=== PATIENT | male | born 1975 | race American Indian/Alaskan Native ===

== ENCOUNTER 2019-11-04 20:31 | Emergency (ER) | payer OTHER ==
--- OUTSIDE RECORDS SUMMARY | ~2019-11-04 | XMS | Clinical Summary ---
Demographics + + + | Address | [address] | | | [place] [address] | + + + | Home Phone | | + + + | Preferred Language | Unknown | + + + | Marital Status | Unknown | + + + | Yazdanism Affiliation | [id number] | + + + | Race | White | + + + | Ethnic Group | Not or | + + + Author + + + | Author | [facility] | | | and [place] | + + + | Organization | [facility] | | | and [place] | + + + | Address | Unknown | + + + | Phone | Unavailable | + + + Support + + +---------+ + | Name | Relationship | Address | Phone | + + +---------+ + | Lin Velasquez | ECON | Unknown | | + + +---------+ + Care Team Providers + +------+ + | Care Thread Winder Name | Role | Phone | + +------+ + | Tiffany Sage | PCP | | + +------+ + Allergies No Known Allergies Medications + + + +---------+------+------+-------+ | Medication | Sig | Dispensed | Refills | Star | End | Statu | | | | | | t | Date | s | | | | | | Date | | | + + + +---------+------+------+-------+ | methylPREDNISolone | Follow package | 21 | 0 | 04/1 | | Activ | | (MEDROL DOSEPAK) 4 | directions. | tablet | | 5/20 | | e | | mg tablet | | | | 20 | | | + + + +---------+------+------+-------+ Active Problems + + + | Problem | Noted Date | + + + | Lumbar strain | 06/10/2019 | + + + | Contusion of right knee | 08/11/2015 | + + + | Sprain of right knee | 08/11/2015 | + + + Family History + + +--------+ + | Medical History | Relation | Name | Comments | + + +--------+ + | No known problems | Father | Jose F | | + + +--------+ + | No known problems | Maternal | | | | | Grandfath | | | | | er | | | + + +--------+ + | No known problems | Maternal | | | | | Grandmoth | | | | | er | | | + + +--------+ + | No known problems | Mother | | | + + +--------+ + | No known problems | Paternal | | | | | Grandfath | | | | | er | | | + + +--------+ + | No known problems | Paternal | | | | | Grandmoth | | | | | er | | | + + +--------+ + | No known problems | Son | | | + + +--------+ + + +--------+--------+ + | Relation | Name | Status | Comments | + +--------+--------+ + | Father | Jose F | Alive | | + +--------+--------+ + | Maternal Grandfather | | | | + +--------+--------+ + | Maternal Grandmother | | | | + +--------+--------+ + | Mother | | | | + +--------+--------+ + | Paternal Grandfather | | | | + +--------+--------+ + | Paternal Grandmother | | | | + +--------+--------+ + | Son | | | | + +--------+--------+ + Social History + +-------+ +--------+------+ | Tobacco Use | Types | Packs/Day | Years | Date | | | | | Used | | + +-------+ +--------+------+ | Current Every Day | | | | | | Smoker | | | | | + +-------+ +--------+------+ + +---+---+---+ | Smokeless Tobacco: | | | | | Current User | | | | + +---+---+---+ + + +---------+ + | Alcohol Use | Drinks/Week | oz/Week | Comments | + + +---------+ + | Never | | | | + + +---------+ + + + + + | Alcohol Habits | Answer | Date Recorded | + + + + | How often do you have a drink containing | Never | 08/08/2018 | | alcohol? | | | + + + + | How many drinks containing alcohol do you | Not asked | | | have on a typical day when you are | | | | drinking? | | | + + + + | How often do you have six or more drinks on | Not asked | | | one occasion? | | | + + + + + + + | Sex Assigned at | Date Recorded | | | | + + + | Not on file | | + + + Last Filed Vital Signs + + + + + | Vital Sign | Reading | Time Taken | Comments | + + + + + | Blood Pressure | 114/75 | 06/10/2019 1:04 PM | | | | | PDT | | + + + + + | Pulse | 66 | 06/10/2019 1:04 PM | | | | | PDT | | + + + + + | Temperature | 36.3 C (97.3 F) | 06/10/2019 1:04 PM | | | | | PDT | | + + + + + | Respiratory Rate | 16 | 06/10/2019 1:04 PM | | | | | PDT | | + + + + + | Oxygen Saturation | 97% | 08/08/2018 5:39 PM | | | | | PDT | | + + + + + | Inhaled Oxygen | - | - | | | Concentration | | | | + + + + + | Weight | 78 kg (172 lb) | 06/10/2019 1:04 PM | | | | | PDT | | + + + + + | Height | 177.8 cm (5' 10") | 06/10/2019 1:04 PM | | | | | PDT | | + + + + + | Body Mass Index | 24.68 | 06/10/2019 1:04 PM | | | | | PDT | | + + + + + Plan of Treatment + + + + + | Health Maintenance | Due Date | Last | Comments | | | | Done | | + + + + + | Hepatitis C | | | | | Screening | 4 | | | + + + + + | Vaccine: | | | | | Pneumococcal 19-64 | 0 | | | | (1 of 1 - PPSV23) | | | | + + + + + | Vaccine: Influenza | | 12/05/19 | | | (#1) | 0 | 18, | | | | | 12/01/19 | | | | | 16 | | + + + + + | Vaccine: | | 08/08/19 | | | Dtap/Tdap/Td (3 - | 9 | 19, | | | Td) | | 08/13/19 | | | | | 10 | | + + + + + Results Not on filefrom Last 3 Months Insurance + +--------+ +--------+-------+---------+--------+ | Payer | Benefi | Subscriber | Effect | Phone | Address | Type | | | t Plan | ID | lg | | | | | | / | | Dates | | | | | | Group | | | | | | + +--------+ +--------+-------+---------+--------+ | CORVEL WC | CORVEL | [id number] | 06/03/19 | | | Indemn | | | WC | [id number] | 20-Pre | | | ity | | | | | sent | | | | + +--------+ +--------+-------+---------+--------+ | BCBS | BCBS | [id number] | | | | PPO | | | OOS | 3 | 019-Pr | | | | | | PPO | | esent | | | | + +--------+ +--------+-------+---------+--------+ + +--------+ +--------+ + + | Guarantor Name | Accoun | Relation to | Date | Phone | Billing Address | | | t Type | Patient | of | | | | | | | | | | + +--------+ +--------+ + + | Domo Joseph | Person | Self | [birth year] | [address] | | | al/Fam | | 1974 | | [place] [address] | | | edwar | | | 3 (Home) | | + +--------+ +--------+ + + | Domo Joseph | Worker | Self | [birth year] | [address] | | | s Comp | | 1974 | | [place] [address] | | | | | | 3 (Home) | | + +--------+ +--------+ + + | Domo Joseph | Person | Self | [birth year] | [address] | | | al/Fam | | 1974 | [id number] | [place] [address] | | | edwar | | | 3 (Home) | | + +--------+ +--------+ + + Advance Directives + + + + + | Type | Date Recorded | Patient | Explanation | | | | A/C Tech | | + + + + + | Power of | | | | | Ladle Liner | | | | + + + + + | Advance | | | | | Directive | | | | + + + + +
--- OUTSIDE RECORDS SUMMARY | ~2019-11-04 | XMS | Encounter Summary ---
Demographics + + + | Address | [address] | | | [place] [address] | + + + | Home Phone | | + + + | Preferred Language | Unknown | + + + | Marital Status | Unknown | + + + | Islam Affiliation | 1009 | + + + | Race | White | + + + | Ethnic Group | Not or | + + + Author + + + | Author | [facility] | | | and [place] | + + + | Organization | [facility] | | | and [...] Team Providers + +------+ + | Care Adult Basic Studies Teacher Name | Role | Phone | + +------+ + | Tiffany Sage | PCP | | + +------+ + Reason for Visit + + + | Reason | Comments | + + + | New Patient | | + + + | Back Pain | | + + + Evaluate & Treat (Routine) +--------+--------+ + + + + | Status | Reason | Specialty | Diagnoses / | Referred By | Referred To | | | | | Procedures | Contact | Contact | +--------+--------+ + + + + | Closed | | Physical | Diagnoses | Sage, | Juvenal, | | | | Medicine and | Other | [facility] [place] | Piotr Day MD | | | | Rehabilitatio | intervertebr | [address] | [address] | | | | n | al disc | [address] | [place] | | | | | displacement | [place], | [place], [place] | | | | | , lumbar | [place] | [address] Phone: | | | | | pdbrze | [address] | [phone] | | | | | | Phone: | Fax: | | | | | | [phone] | [phone] | | | | | | Fax: | | | | | | | [phone] | | +--------+--------+ + + + + Encounter Details +--------+---------+ + + + | Date | Type | Department | Care Team | Description | +--------+---------+ + + + | 06/09/ | Office | [facility] | Kaila Warner | Strain of lumbar | | 2020 | Visit | PHYSIATRY [address] | [address]ISBET [address] | region, subsequent | | | | [address] | [address] | encounter | | | | [place], [place] | [address] [place], [place] | | | | | [address] | [address] | | | | | [phone] | | | +--------+---------+ + + + Social History + +-------+ +--------+------+ | [...] on file | | + + + documented as of this encounter Last Filed Vital Signs + + + [...] + + + | Oxygen Saturation | - | - | | + + + + + [...] | | + + + + + documented in this encounter Patient Instructions Patient Instructions Kaila Warner PA-C - 06/10/2019 1:00 PM PDT1. A prescriptio n for 1 week of steroid pills was sent to your pharmacy. This will hopefully reduce some in flammation and reduce some pain. 2. Continue with core conditioning at home exercises. 3. If the Medrol Dosepak prescription does not improve your pain enough please call back a nd I will facilitate having lumbar facet injections done to see if this will reduce your roshan n. I have included information below about facet injections in case we need to go forward w ith this. Facet Joint Injection Back or neck pain may be caused by a problem with your facet joints. If so, a facet joint i njection may help. With this treatment, medicine is injected into certain facet joints. The injection can help your doctor find problem joints. It may also relieve your pain. What is a facet joint? Bones called vertebrae make up your spine. Each vertebra has facets (flat surfaces) that to uch where the vertebrae fit together. These form a structure called a facet joint on each si de of the vertebrae. What is a facet joint injection? One or more facet joints in your back or neck can become inflamed (swollen and irritated). This may cause pain. During a facet joint injection, medicine is injected into the inflamed joints. This treatment may help reduce inflammation and relieve pain. Pain reliefmay last for weeks to months or longer. If the pain returns, you may need a repeat injection. Getting ready To get ready for your treatment, do the following: At least a week before treatment, tell your healthcare provider what medicines you take. This includes aspirin. Ask whether you should stop taking any of them before treatment. Tell your provider if you are or allergic to any medicines. Follow any directions you are given for not eating or drinking before the treatment. If asked, bring X-rays, MRIs, or other tests with you on the day of your treatment. Date Last Reviewed: 05/26/201719990973-7949 [employer]. [address] [place] [address]. All righ ts reserved. This information is not intended as a substitute for professional medical care. Always follow your healthcare professional's instructions. documented in this encounter Progress Notes Kaila Warner PA-C - 06/10/2019 1:00 PM PDTFormatting of this note might be diffe rent from the original. Emili Warner PA-C [address] [place] [address], [address] [place] [address] PHONE: FAX: PHYSIATRY HISTORY AND PHYSICAL EXAMINATION Organ Worker's Comp. injury date 02/20/2019. CHIEF COMPLAINT: Chief Complaint Patient presents with New Patient Back Pain HISTORY OF PRESENT ILLNESS: The patient is a 44 y.o. male with the complaint of back sympt oms that began on February 20, 2019. The patient describes symptom onset following lifting heavy amount of grout while at work. The symptoms have been gradually worsening. He rates the pain as severe and rated a 3/10. The symptoms are continuous. He describes t he pain as aching, dull, sharp, shooting and throbbing. The patient denies any lower extremity radiation or leg weakness. He does report weakness in his low back. Patient has done 12 physical therapy sessions and has been on modified dut y lifting no more than 10 pounds, no bending or twisting and despite this he has a limited t olerance to activity level. The patient does not report any change in bowel or bladder function recently. His symptoms improve with rest. His symptoms worsen with changing position, standing, sitting, bending and twisting. He has tried PT, NSAIDS and Muscle relaxers. Patient has a history of a work injury to his right knee that required ACL repair and subsequent PT. He found that swimming laps in the pool helped condition his body for return to work. He does admit that he has ongoing right knee pain which may affect his compensation and his ability to lift properly. . PAST MEDICAL HISTORY: Past Medical History: Diagnosis Date Herniation of intervertebral disc between L4 and L5 Lumbar radiculopathy Lumbar spondylosis Lumbar sprain Other intervertebral disc displacement, lumbar region Urinary tract infection, site not specified PAST SURGICAL HISTORY: Past Surgical History: Procedure Laterality Date ANTERIOR CRUCIATE LIGAMENT REPAIR Right 2017 ANTERIOR CRUCIATE LIGAMENT REPAIR Right 1994 CURRENT MEDICATIONS: Current Outpatient Medications Medication Sig Dispense Refill methylPREDNISolone (MEDROL DOSEPAK) 4 mg tablet Follow package directions. 21 tablet 0 No current facility-administered medications for this visit. ALLERGIES: No Known Allergies SOCIAL HISTORY: The patient reports that he has been smoking. He uses smokeless tobacco. He reports that h e does not drink alcohol or use drugs. FAMILY HISTORY: Family History Problem Relation Age of Onset No known problems Father No known problems Son No known problems Mother No known problems Maternal Grandmother No known problems Maternal Grandfather No known problems Paternal Grandmother No known problems Paternal Grandfather REVIEW OF SYSTEMS: GENERALLY: No fever, no night sweats, no anemia, no fatigue, no recent profound weight ch anges. EYES: No eye problems, no impaired sight, no use of corrective lenses, no eye injury, no d ouble vision, no transient blindness. EARS, NOSE, AND THROAT: No changes in taste or smell, no hearing difficulty, no ringing in the ears, no ear drainage, no ear injury, no dizziness, no voice changes, no difficulty swa llowing, no significant snoring, no sleep apnea/CPAP, no sinus problems, no major dental wor k. NEUROLOGICALLY: Please see the review of systems discussed above in the history of present illness. In addition, He has back injury. PSYCHIATRIC: No depression, no difficulty sleeping, no anxiety, no bipolar disorder. CARDIOVASCULAR: No heart attacks, no heart murmur, no heart fluttering, no chest pain, no ankle swelling. LUNG DISEASE: No shortness of breath, no cough, no tuberculosis, no bloody cough, no asthm a, no emphysema/COPD. GASTROINTESTINAL: No bowel disease, no nausea or vomiting, no rectal bleeding, no constipa tion, no fecal stool incontinence, no liver/gallbladder disease, no abdominal pain, no ulcer s. KIDNEY DISEASE: No urinary frequency, no painful or difficult urination, no urinary incont inence, no bladder problems, no impotence. ENDOCRINE: No diabetes, no thyroid disease, no osteopenia or osteoporosis, no breast drain age. SKIN: No breast lumps, no skin disease or skin changes, no rashes/itches. HEMATOLOGIC/LYMPHATIC: No enlarged lymph nodes, no easy or unusual bleeding, no personal h istory of cancer. RHEUMATOLOGIC: No joint pain/arthritis, no rheumatoid arthritis. PHYSICAL EXAMINATION: Blood pressure 114/75, pulse 66, temperature 36.3 C (97.3 F), resp. rate 16, height 1.7 78 m (5' 10"), weight 78 kg (172 lb). Body mass index is 24.68 kg/m. GENERAL: Domo Joseph is in no acute distress with unlabored respirations. He does n ot appear uncomfortable throughout the exam today. HEENT: Head: Normocephalic/atraumatic with no areas of recent trauma. Eyes: Normal sclerae without icterus. Ears: No drainage or tenderness. Nasopharynx: Clear without drainage. Oropharynx: Clear without erythema. NECK (ANTERIOR): Supple and without palpable masses. CHEST: Unlabored respirations HEART: No lower extremity edema noted ABDOMEN: Soft, non-tender, non-distended, and without palpable masses. The patient is not obese. NEUROLOGICAL: The patient is awake, alert, and oriented to time, place, person. He follows simple and complex commands. His speech is fluent. He comprehends speech well. He has no apparent deficits with short or long-term memory. Cranial nerves 2-12 appear grossly intact. EXTREMITIES: No cyanosis, clubbing, or edema. Distal pulses are palpable. PHYSICAL EXAM: MENTAL STATUS: He is awake, alert, and oriented. He follows simple and complex commands. His speech is fluent, he comprehends speech well, and he repeats well. He has no apparent deficits with short or rn long term care memory. CRANIAL NERVES: II: Acuity is intact. Coronel are full to confrontation. III, IV, : The pupils are reactive. Extraocular movements are intact. No ptosis is note d. V: Facial sensation is intact and symmetric. VII: Facial movements are symmetric. VIII: Hearing is intact bilaterally. IX, X: The uvula and palate move appropriately. XI: Shrug is equal bilaterally. XII: Tongue protrusion is midline. MOTOR EXAM: (5 IS NORMAL) * Indicates pain limited MUSCLE/ MOVEMENT: RIGHT LEFT Hip Flexion 5 5 Hip Extension 5 5 Knee Flexion 5 5 Knee Extension 5 5 Dorsiflexion 5 5 Extensor Hallicus Longus 5 5 Plantarflexion 5 5 SENSORY EXAM: Sensory exam shows no diminished sensation to light touch or pain throughout the upper and lower extremities. REFLEXES: (2 OR 2+ IS NORMAL) REFLEX: RIGHT LEFT PATELLAR 2 2 ACHILLES 2 2 SIMEON'S ABSENT ABSENT PLANTAR DOWNGOING DOWNGOING GAIT: Gait is steady. Patient is able to demonstrate tiptoe and heel walk. Lumbar flexion is de monstrated with significant guarding and slow movements due to anticipated low back pain. L umbar extension is demonstrated with some reports of pressure in the low back. The patient reports that frequent forward flexion aggravates his pain. Patient has some positive facet loading at L4-5 and L5-S1 bilateral. PERIPHERAL NERVE/MISC: Straight leg raise is negative bilaterally. Mendez's test of the hips is negative bilaterally. TEST AND RADIOGRAPHIC REVIEW: His imaging was reviewed in detail today during the visit. The MRI from 05/18/2019 shows L2 -3 disc bulge. L4-5 disc bulge with facet hypertrophy and mild facet subluxation causing mo derate central stenosis. Emerging bilateral L5 nerve roots mildly squeeze between the facet joints and disc left greater than right. L5-S1 disc bulge with mild effacement of the thec al sac. Mild facet hypertrophy.. Lumbar x-rays from 04/07/2019 shows no major instability. Patient has disc degenerative dis ease at L4-5 and L5-S1 with spondylosis. ASSESSMENT: NEUROSURGICAL DIAGNOSES: Encounter Diagnosis Name Primary? Strain of lumbar region, subsequent encounter GENERAL DIAGNOSES: Past Medical History: Diagnosis Date Herniation of intervertebral disc between L4 and L5 Lumbar radiculopathy Lumbar spondylosis Lumbar sprain Other intervertebral disc displacement, lumbar region Urinary tract infection, site not specified PLAN: Domo Joseph presented today, and it was a pleasure seeing this patient and assessing his problems. 1) Today we discussed the patient's differential diagnosis with the likely primary issue be ing lumbar strain with lumbar spondylosis. Patient also has multilevel disc bulge which may be causing pain with anterior loading. Patient's description of symptoms, physical exam, a nd imaging suggest this diagnosis at this time. 2) I counseled patient on treatment options which included conservative self management usi ng OTC NSAIDs/Ice and heat packs, physical therapy, prescription medications, epidural stero id injection, neuromodulation therapies, as well as possible surgical intervention. 3) Imaging: As descibed above in radiology review. 4) The patient has had significant conservative care including medications (NSAIDS and narc otics), PT (multiple sessions over the years) and rn patient care. Unfortunately Domo Joseph continues to have significant discomfort. It appears to me that the pain is prima rily coming from multilevel lumbar disc bulge with some lumbar spondylosis at L4-5 and L5-S1 . I did feel that Domo Joseph would be a good candidate for interventional procedur es and I offered a bilateral L4-5 and L5-S1 facet joint injections to be done. Patient will first try Medrol Dosepak to see if his pain reduces before injection options. I did feel that Domo Joseph would be a good candidate for medication: Medrol Dose suraj was prescribed to the patient for pain reduction. He was encouraged to try some return to work conditioning. He suggested returning to swimming which I think it would be appropri ate if it did not cause pain. 5) Patient will follow up with me 3 weeks post injection/as needed to discuss any imaging a nd/or progress with today's treatment plan. 6) If current treatment plan is insufficient for symptom relief we could try bilateral L4-5 and L5-S1 facet joint injection as the next therapy option. I spent 30 minutes in visit with Domo Joseph today with the majority of time spent c ounselling the patient on his diagnosis, options for his care, and coordinating his care. 06/10/19 ELECTRONICALLY SIGNED BY: Emili Warner PA-C, 06/10/2019 3:51 PM documented in this encounter Plan of Treatment Not on filedocumented as of this encounter Visit Diagnoses + + | Diagnosis | + + | Strain of lumbar region, subsequent encounter | + + documented in this encounter
--- OUTSIDE RECORDS SUMMARY | ~2019-11-04 | XMS | Encounter Summary ---
Demographics + + + | Address | [address] | | | [place] [address] | + + + | Home Phone | | + + + | Preferred Language | Unknown | + + + | Marital Status | Unknown | + + + | Episcopal Affiliation | 1009 | + + + | Race | White | + + + | Ethnic Group | Not or | + + + Author + + + | Author | [facility] | | | and [place] | + + + | Organization | [facility] | | | [...] Team Providers + +------+ + | Care Piercing Artist Name | Role | Phone | + +------+ + | No, Physician | PCP | Unavailable | + +------+ + Encounter Details +--------+ + + + + | Date | Type | Department | Care Team | Description | +--------+ + + + + | 09/05/ | Imaging | [facility] | Heena Rodriguez | S/P ACL | | 2019 | Exam | [address] | MD [address] | reconstruction; | | | | [address] [place] | [address] [place] | Place of occurrence, | | | | [place] [address] | [place] [address] | industrial places | | | | [phone] | [phone] | and premises | | | | | | | +--------+ + + + + Social History + +-------+ +--------+------+ | Tobacco Use | Types | Packs/Day | Years | Date | | | | | Used | | + +-------+ +--------+------+ | Never Smoker | | | | | + [...] + + documented as of this encounter Plan of Treatment Not on filedocumented as of this encounter Procedures + +--------+ + + + | Procedure Name | Priori | Date/Time | Associated Diagnosis | Comments | | | ty | | | | + +--------+ + + + | XR KNEE RIGHT 1 - 2 | Routin | 09/05/2018 | S/P ACL | Results for this | | VW | e | 2:54 PM | reconstruction | procedure are in the | | | | PDT | Place of occurrence, | results section. | | | | | industrial places | | | | | | and premises | | + +--------+ + + + documented in this encounter Results XR Knee Right 1 - 2 Vw (09/05/2018 2:54 PM PDT) + + | Specimen | + + | | + + + + + | Narrative | Performed At | + + + | XR KNEE RIGHT 1 - 2 VW 09/05/2018 2:54 PM HISTORY: pain. | [facility] | | COMPARISON: None. FINDINGS: No evidence of prior ACL repair. No | | | significant joint effusion. Mild tricompartment degenerative changes | | | of the right knee. No acute osseous findings. IMPRESSION - No | | | acute osseous findings. No evidence of prior ACL repair. No | | | significant joint effusion. Dictated and Signed by: Miko | | | MD Mya Electronically signed: 09/05/2018 3:11 PM | | + + + + + | Procedure Note | + + | Arjun, Rad Results In - 09/05/2018 3:14 PM PDT XR KNEE RIGHT 1 - 2 VW 09/05/2018 2:54 | | PMHISTORY: pain.COMPARISON: None.FINDINGS:No evidence of prior ACL repair. No | | significant joint effusion. Mildtricompartment degenerative changes of the right knee. | | No acute osseousfindings.IMPRESSION -No acute osseous findings.No evidence of prior ACL | | repair. No significant joint effusion.Dictated and Signed by: Miko Roque MD | | Electronically signed: 09/05/2018 3:11 PM | |FINDINGS: | |No evidence of prior ACL repair. No significant joint effusion. Mild | |tricompartment degenerative changes of the right knee. No acute osseous | |findings. | | | |IMPRESSION - | |No acute osseous findings. | | | |No evidence of prior ACL repair. No significant joint effusion. | | | |Dictated and Signed by: Miko Roque MD | | Electronically signed: 09/05/2018 3:11 PM | + + + +---------+ + + | Performing | Address | City/State/Zipcode | Phone Number | | Organization | | | | + +---------+ + + | [facility] | | | | + +---------+ + + documented in this encounter Visit Diagnoses + + | Diagnosis | + + | S/P ACL reconstruction Other postprocedural status | + + | Place of occurrence, industrial places and premises | + + documented in this encounter"
--- OUTSIDE RECORDS SUMMARY | ~2019-11-04 | XMS | Encounter Summary ---
Demographics + + + | Address | [address] | | | [place] [address] | + + + | Home Phone | | + + + | Preferred Language | Unknown | + + + | Marital Status | Unknown | + + + | Voodoo Affiliation | 1009 | + + + | Race | White | + + + | Ethnic Group | Not or | + + + Author + + + | Author | [facility] | | | and [place] | + + + | Organization | [facility] | | | and [place] | + + + | Address | Unknown | + + + | Phone | Unavailable | + + + Support + + +---------+ + | Name | Relationship | Address | Phone | + + +---------+ + | Lin eVlasquez | ECON | Unknown | | + + +---------+ + Care Team Providers + +------+ + | Care Billet Assembler Name | Role | Phone | + +------+ + | Tiffany Sage | PCP | | + +------+ + Encounter Details +--------+ + + + + | Date | Type | Department | Care Team | Description | +--------+ + + + + | 06/03/ | Imaging | [facility] | Provider, | | | 2019 | Exam | [facility] | [address] | | | | | IMAGING [address] | [address] | | | | | [address] | [place] [address] | | | | | [place] [address] | | | | | | [phone] | | | +--------+ + + + [...] + +--------+ + + + | XR LUMBAR SPINE 2 OR | Routin | 04/07/2019 | | Results for this | | 3 VW | e | 12:00 AM | | procedure are in the | | | | PST | | results section. | + +--------+ + + + documented in this encounter Results XR Lumbar Spine 2 or 3 Vw (04/07/2019 12:00 AM PST) + + | Specimen | + + | | + + + + + | Narrative | Performed At | + + + | External films for comparison only | [facility] | | | | | No results will be in the chart. | | + + + + +---------+ + + | Performing | Address | City/State/Zipcode | Phone Number | | Organization | | | | + +---------+ + + | [facility] | | | | + +---------+ + + documented in this encounter Visit Diagnoses Not on filedocumented in this encounter"
--- OUTSIDE RECORDS SUMMARY | ~2019-11-04 | XMS | Encounter Summary ---
Demographics + + + | Address | [address] | | | [place] [address] | + + + | Home Phone | | + + + | Preferred Language | Unknown | + + + | Marital Status | Unknown | + + + | Baptist Affiliation | 1009 | + + + | Race | White | + + + | Ethnic Group | Not or | + + + Author + + + | Author | [facility] | | | and [place] | + + + | Organization | [facility] | | [...] Team Providers + +------+ + | Care Mail Delivery Supervisor Name | Role | Phone | + [...] | [facility] | [address] | | | | | IMAGING [address] | [address] | | | | | [place] | [place] [address] | | | | | [place] [address] | | | | | | [phone] | | | +--------+ + + + [...] | + +--------+ + + + | MRI LUMBAR SPINE WO | Routin | 05/18/2019 | | Results for this | | CONTRAST | e | 12:00 AM | | procedure are in the | | | | PDT | | results section. | + +--------+ + + + documented in this encounter Results MRI Lumbar Spine wo Contrast (05/18/2019 12:00 AM PDT) + + | Specimen | + [...]
--- OUTSIDE RECORDS SUMMARY | ~2019-11-04 | XMS | Encounter Summary ---
Demographics + + + | Address | [address] | | | [place] [address] | + + + | Home Phone | | + + + | Preferred Language | Unknown | + + + | Marital Status | Unknown | + + + | Yazidism Affiliation | 1009 | + + + | Race | White | + + + | Ethnic Group | Not or | + + + Author + + + | Author | [facility] | | | and [place] | + + + | Organization | [facility] | | | [...] Team Providers + +------+ + | Care Shake Cutter Name | Role | Phone | + +------+ + | Tiffany Sage | PCP | | + +------+ + Encounter Details +--------+ + + + + | Date | Type | Department | Care Team | Description | +--------+ + + + + | 06/07/ | Abstract | [facility] | Freya, | | | 2019 | | PHYSIATRY [address] | [address] | | | | | [address] | [address] | | | | | [place] | [place] [address] | | | | | [address] | | | | | | [phone] | | | +--------+ + + + [...] filedocumented as of this encounter Visit Diagnoses Not on filedocumented in this encounter"
--- OUTSIDE RECORDS SUMMARY | ~2019-11-04 | XMS | Encounter Summary ---
Demographics + + + | Address | [address] | | | [place] [address] | + + + | Home Phone | | + + + | Preferred Language | Unknown | + + + | Marital Status | Unknown | + + + | Baptism Affiliation | 1009 | + + + | Race | White | + + + | Ethnic Group | Not or | + + + Author + + + | Author | [facility] | | | and [place] | + + + | Organization | [facility] | | | and [...] Team Providers + +------+ + | Care Oil Expert Name | Role | Phone | + +------+ + | No, Physician | PCP | Unavailable | + +------+ + Reason for Referral Evaluate & Treat (Routine) +--------+ + + + + + | Status | Reason | Specialty | Diagnoses / | Referred By | Referred To | | | | | Procedures | Contact | Contact | +--------+ + + + + + | Closed | Specialty | Occupational | Diagnoses | [place], | [facility] | | | Services | Medicine | Patellar | MD [facility] | Occupational | | | Required | | bursitis of | [address] | Health Sg | | | | | left knee | [address] [place] | [address] | | | | | | [place] | [address] | | | | | | [address] | [place], | | | | | | Phone: | [place] [address] | | | | | | [phone] | Phone: | | | | | | Fax: | [phone] | | | | | | [phone] | Fax: | | | | | | | [phone] | +--------+ + + + + + Evaluate & Treat (Routine) +--------+ + + + + + | Status | Reason | Specialty | Diagnoses / | Referred By | Referred To | | | | | Procedures | Contact | Contact | +--------+ + + + + + | Closed | Specialty | Physical | Diagnoses | Henriquez, | [facility] [place] | | | Services | Therapy | Patellar | MD [facility] | CLINIC | | | Required | | bursitis of | [address] | PHYSICAL | | | | | left knee | [address] [place] | THERAPY [address] | | | | | | [place] | [address] | | | | | | [address] | [place], | | | | | | Phone: | [place] [address] | | | | | | [phone] | Phone: | | | | | | Fax: | [phone] | | | | | | [phone] | Fax: | | | | | | | [phone] | +--------+ + + + + + Reason for Visit + + + | Reason | Comments | + + + | Knee Pain | right | + + + Encounter Details +--------+ + + + + | Date | Type | Department | Care Team | Description | +--------+ + + + + | 08/08/ | Emergency | [facility] | Raymond Henriquez MD | Patellar bursitis of | | 2019 | | [facility] | [address] | left knee (Primary | | | | CENTER [address] | [place] | Dx) | | | | [place] | [address] | | | | | [address] | | | | | | [phone] | | | +--------+ + + + [...] + + + | Blood Pressure | 137/89 | 08/08/2018 5:39 PM | | | | | PDT | | + + + + + | Pulse | 59 | 08/08/2018 5:39 PM | | | | | PDT | | + + + + + | Temperature | 36.4 C (97.6 F) | 08/08/2018 5:39 PM | | | | | PDT | | + + + + + | Respiratory Rate | 18 | 08/08/2018 5:39 PM | | | | | PDT | | + + + + + | Oxygen Saturation | 97% | 08/08/2018 5:39 PM | | | | | PDT | | + + + + + | Inhaled Oxygen | - | - | | | Concentration | | | | + + + + + | Weight | 78.5 kg (173 lb) | 08/08/2018 5:39 PM | | | | | PDT | | + + + + + | Height | 175.3 cm (5' 9") | 08/08/2018 5:39 PM | | | | | PDT | | + + + + + | Body Mass Index | 25.55 | 08/08/2018 5:39 PM | | | | | PDT | | + + + + + documented in this encounter Discharge Instructions Instructions Raymond Henriquez MD - 08/08/2018You must rest the knee, icing it, keep it elevate d, keep compression on it. Follow-up with physical therapy. Return for worsening symptoms. AttachmentsThe following attachments cannot be sent through Care Everywhere.Bursitis (Leo )Knee Sprain (Latvian)documented in this encounter Medications at Time of Discharge + + + +---------+ + + | Medication | Sig | Dispensed | Refills | Start | End Date | | | | | | Date | | + + + +---------+ + + | meloxicam (MOBIC) | Take 15 mg by mouth | | 0 | | | | 15 mg tablet | Daily. | | | | 0 | + + + +---------+ + + | meloxicam (MOBIC) | Take 1 tablet by | 30 | 0 | 08/09/19 | | | 15 mg tablet | mouth Daily as | tablet | | 19 | 0 | | | needed for Pain. | | | | | + + + +---------+ + + documented as of this encounter ED Notes Raymond Henriquez MD - 08/08/2018 5:36 PM PDTFormatting of this note might be different from t sophie original. [facility] Domo Joseph Emergency Department Encounter Note [address] [place] [id number] PCP:No Physician on file [phone] CHIEF COMPLAINT: Chief Complaint Patient presents with Knee Pain right ED Room: [facility]/[address] Domo Joseph is a 43 y.o. male who presents to the Emergency Department with bilateral kne e pain. Patient has a history of ACL repair of his right knee. He has been having pain of his right knee for the past 2 weeks. He has been favoring his right knee and has not develo ped pain over his patella of his left knee. He denies any numbness or tingling. No history of trauma. He has very active and has a strenuous job. He has been taking ibuprofen with no significant improvement the pain. He had some leftover meloxicam which he says helped si gnificantly. PAST MEDICAL & SURGICAL HISTORY History reviewed. No pertinent past medical history. Past Surgical History: Procedure Laterality Date ANTERIOR CRUCIATE LIGAMENT REPAIR Right 2017 CURRENT MEDICATIONS LAY OUT FORMER Home Medications Medication Sig meloxicam (MOBIC) 15 mg tablet Take 15 mg by mouth Daily. ALLERGIES No Known Allergies FAMILY AND SOCIAL HISTORY History reviewed. No pertinent family history. Social History Socioeconomic History Marital status: Single Spouse name: Not on file Number of children: Not on file Years of education: Not on file Highest education level: Not on file Tobacco Use Smoking status: Never Smoker Smokeless tobacco: Current User Substance and Sexual Activity Alcohol use: Never Frequency: Never Drug use: Never REVIEW OF SYSTEMS As in history of present illness. A 10 system review was otherwise negative. PHYSICAL EXAM VITAL SIGNS: (first vital signs):Temp: 36.4 C (97.6 F) Pulse: 59 Resp: 18 SpO2: 97 % BP : 137/89 Body mass index is 25.55 kg/m. Constitutional: male patient, no acute distress HEENT: Atraumatic, PERRL, Oropharynx benign. Neck: Supple with full range of motion. Respiratory: Good air movement bilaterally. No wheezes, No, rales. Cardiovascular: Normal S1 S2 Abdomen: Soft, nontender, nondistended Extremities: Nontender. No pain of either knee with valgus or varus stress, negative poste rior drawer test and negative Merlin test, pedal pulses 2+ bilaterally, some mild tendernes s over the inferior aspect of his left knee Skin: Warm, Dry, No rashes Neurologic: Alert & oriented. Psychiatric: Normal mood, affect and judgement. EKG 12-lead EKG shows LABS No results found for this or any previous visit. IMAGING STUDIES (X-Rays interpreted by ED Physician) ED COURSE & MEDICAL DECISION MAKING Pertinent Labs & Imaging studies were reviewed along with EMS notes and [facility] record s if applicable. (See chart for details) Medications and Allergy list reviewed. Nurses note and old records were reviewed The patient was seen and examined, Patient is a 43-year-old male who presents with bilateral knee pain. He has no laxity of h is ligaments. Most of the pain is over the inferior aspect of his left patella. Most consi stent with a patella bursitis. He does have a history of right knee surgery. He was placed in [place] bandage and given crutches. Encouraged to follow-up with physical therapy. He want s to follow-up with Dr. Rodriguez of occupational medicine given that he had similar injury 2 y ears ago. Gave him phone number to Dr. Rodriguez. Last Set of Vital Signs: Temp: 36.4 C (97.6 F) Pulse: 59 Resp: 18 SpO2: 97 % BP: 137/89 FINAL IMPRESSION ICD-10-CM ICD-9-CM 1. Patellar bursitis of left knee M70.52 726.60 Follow-up Information [facility]. Specialty: Emergency Medicine Why: If symptoms worsen Contact information: [address] [place] [facility] [address] Call [facility]. Contact information: [address] [facility] [address] Call Heena Rodriguez MD. Specialty: Family Medicine Contact information: [address] [facility] [address] Discharge Medication List as of 08/08/2018 18:50 START taking these medications Details !! meloxicam (MOBIC) 15 mg tablet Take 1 tablet by mouth Daily as needed for Pain.Disp-30 t ablet, R-0, Print !! - Potential duplicate medications found. Please discuss with provider. Raymond Henriquez MD 08/09/18 1320 [address] Beasley R N - 08/08/2018 5:34 PM PDTPt presents to ER with CO right knee pain starting 2 weeks prior, worsening in the last few days. Hx of ACL repair documented in this encounter Plan of Treatment + + +--------+ + + | Name | Type | Priori | Associated Diagnoses | Order Schedule | | | | ty | | | + + +--------+ + + | Deyanira Mcmillan | Outpatient | Routin | Patellar bursitis | Ordered: 08/08/2018 | | Clinic Physical | Referral | e | of left knee | | | Therapy - [facility] | | | | | | Referral | | | | | + + +--------+ + + | * [facility] | Outpatient | Routin | Patellar bursitis | Ordered: 08/08/2018 | | Occupational Health | Referral | e | of left knee | | | [place] - [facility] | | | | | | Referral | | | | | + + +--------+ + + documented as of this encounter Visit Diagnoses + + | Diagnosis | + + | Patellar bursitis of left knee - Primary | + + documented in this encounter
--- OUTSIDE RECORDS SUMMARY | ~2019-11-04 | XMS | Encounter Summary ---
Demographics + + + | Address | [address] | | | [place] [address] | + + + | Home Phone | | + + + | Preferred Language | Unknown | + + + | Marital Status | Unknown | + + + | Sabianist Affiliation | 1009 | + + + | Race | White | + + + | Ethnic Group | Not or | + + + Author + + + | Author | [facility] | | | and [place] | + + + | Organization | [facility] | | | and [...] Team Providers + +------+ + | Care Machine Woodworking Sander Name | Role | Phone | + [...] | Specialty | Physical | Diagnoses | Jennifer, | [facility] | | | Services | Therapy | S/P ACL | Heena | [place] | | | Required | | reconstructi | [facility] | PHYSICAL | | | | | on Place of | [address] | THERAPY - | | | | | occurrence, | [address] | [place] | | | | | industrial | [place], | [address] | | | | | places and | [place] [address] | [place] [address] | | | | | premises | Phone: | [address] | | | | | | [phone] | [place], [place] | | | | | | Fax: | [phone] | | | | | | [phone] | Phone: | | | | | | | [phone] | | | | | | | Fax: | | | | | | | [phone] | +--------+ + + + + + + + | Scheduling Instructions | + + | [facility], [place] | + + Reason for Visit + + + | Reason | Comments | + + + | Knee Injury | | + + + Encounter Details +--------+---------+ + + + | Date | Type | Department | Care Team | Description | +--------+---------+ + + + | 09/05/ | [facility] Heena [facility] | S/P ACL | | 2019 | Visit | [facility]UP[facility] | [facility] [address] | reconstruction | | | | [address] [place] | (Primary Dx); Place | | | | [address] [place] | [place] [address] | of occurrence, | | | | [place], [place] | [phone] | industrial places | | | | [address] | | and premises | | | | [phone] | | | +--------+---------+ + + + [...] + + + | Blood Pressure | 136/75 | 09/05/2018 2:00 PM | | | | | PDT | | + + + + + | Pulse | 77 | 09/05/2018 2:00 PM | | | | | PDT | | + + + + + | Temperature | 36.8 C (98.2 F) | 09/05/2018 2:00 PM | | | | | PDT | | + + + + + | Respiratory Rate | - | - | | + + + + + | Oxygen Saturation | - | - | | + + + + + | Inhaled Oxygen | - | - | | | Concentration | | | | + + + + + | Weight | 78.5 kg (173 lb) | 09/05/2018 2:00 PM | | | | | PDT | | + + + + + | Height | 175.3 cm (5' 9") | 09/05/2018 2:00 PM | | | | | PDT | | + + + + + | Body Mass Index | 25.55 | 09/05/2018 2:00 PM | | | | | PDT | | + + + + + documented in this encounter Progress Notes Heena Rodriguez MD - 09/05/2018 2:00 PM PDTEmployer: [employer] Guarantor: Karla Peralta Date of injury: 07/01/2015 Claim number: [id number] Chief complaint: Reopen request, right knee injury Subjective: 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 At that time he noted some discomfort in the right knee, notified his supervisor press room. Was ulti mately seen by several providers, initial x-rays reported to be negative, MRI did reveal a A CL disruption., And on 04/12/2016, he underwent right knee ACL reconstruction with autograft , revision procedure. Postoperatively he participated in physical therapy and ultimately cl aim was closed. He was returned to regular work responsibilities, but states he continued t o have weakness of the right leg. Over the last 2 months he has began noticing increased pa in and discomfort in the right knee, diffusely over the anterior knee. No significant swell ing and no locking or sticking but does note some sense of instability in the knee. He reca lls no new injury, incident or event that has caused her precipitated his current symptoms. He does note the right leg being weaker, and states that this has been present since his or iginal injury. He recently was seen in the emergency department for bilateral knee pain, gi jac crutches, and referred for continued care. He does have a separate work injury claim fo r his left knee, recently in the emergency department diagnosed with left knee bursitis, unr elated to this claim. He recently moved to the area for work reasons, and presents today to establish care and to have his claim reopened, seeking treatment for the right knee problem s he is currently experiencing. Prior to this industrial injury, he states he did have ACL reconstruction on the right knee when he was in high school, and knee did well up until the injury associated with this clai m. Past medical history, past surgical history, family history, social history, medications, a llergies reviewed Review of systems: As per HPI Objective: Vital signs as noted, nursing notes reviewed. Xjvdlqg-fhce-wxraxsspt, well-nourished, in no apparent distress, pleasant cooperative. Right knee-normal to inspection. No swelling or effusion. Patella is nontender non-ballot able. Range of motion 0 to 135 degrees. No ligament is laxity, negative anterior drawer, n egative Lockman's. No joint line tenderness and no tender points elicited with palpation. Right quadriceps circumference measured 10 cm above the patella rim, is 8 cm less than the l eft quadricep at the same level. Imaging/diagnostics: Right knee x-ray-per my review-no acute findings. Radiology review pending Pending interventions: Continue conservative management. Assessment: 1. Right knee pain-status post ACL reconstruction Plan: It appears that the integrity of the knee is intact. He does have a significant leg circum ference difference, despite regular activity. I am requesting a course of physical therapy, for strengthening to see if this makes a difference with his discomfort. He also has evide nce of chondromalacia. If no response to physical therapy and strengthening, with an recomm end an orthopedic consultation for further evaluation. A referral for physical therapy is ching marquez sent this visit. Injured worker return here in 4 weeks, sooner for acute worsening or other concerns. He voices understanding and agreement. E: Regular duty R: None Impairment for this claim is already been determined, further impairment however is not ant icipated consequence of this injury, however injured worker is not medically stationary. This note was dictated using [employer] voice recognition software. Occasional wrong- word or sound-alike substitutions may have occurred due to the inherent limitations of voice recogni tion software. Please read the chart carefully and recognize, using context, where these blanc bstitutions have occurred. 3 :30 PM PDTdocumented in this encounter Plan of Treatment + + +--------+ + + | Name | Type | Priori | Associated Diagnoses | Order Schedule | | | | ty | | | + + +--------+ + + | Ambulatory referral | Outpatient | Routin | S/P ACL | Ordered: 09/05/2018 | | to Physical Therapy | Referral | e | reconstruction | | | | | | Place of occurrence, | | | | | | industrial places | | | | | | and premises | | + + +--------+ + + documented as of this encounter Results XR Knee Right 1 [...] | + + | S/P ACL reconstruction - Primary Other postprocedural status | + + | Place of occurrence, industrial places and premises | + + documented in this encounter
--- OUTSIDE RECORDS SUMMARY | ~2019-11-04 | XMS | Encounter Summary ---
Demographics + + + | Address | [address] | | | [place] [address] | + + + | Home Phone | | + + + | Preferred Language | Unknown | + + + | Marital Status | Unknown | + + + | Jehovah'S Witness Affiliation | 1009 | + + + | Race | White | + + + | Ethnic Group | Not or | + + + Author + + + | Author | [facility] | | | and [place] | + + + | Organization | [facility] | | [...] Team Providers + +------+ + | Care Parking Patroller Name | Role | Phone | + +------+ + | No, Physician | PCP | Unavailable | + +------+ + Reason for Visit +--------+--------+ + | Reason | Onset | Comments | | | Date | | +--------+--------+ + | Other | 09/11/ | | | | 2019 | | +--------+--------+ + Encounter Details +--------+ + + + + | Date | Type | Department | Care Team | Description | +--------+ + + + + | 09/11/ | Telephone | [facility] [place] | Heena Rodriguez | Other | | 2019 | | OCCUPATIONAL HEALTH | [facility] [address] | | | | | [address] [place] | | | | | [address] [place] | [place] [address] | | | | | [place], [place] | [phone] | | | | | [address] | | | | | | [phone] | | | +--------+ + + + [...] + + documented as of this encounter Miscellaneous Notes Telephone Encounter - Heena Rodriguez MD - 09/11/2018 4:34 PM PDTNoted. Any further treatment or necessary restrictions are pending reopen. elephone Encounter - Edda Alejo CMA - 09/12/19 19 2:50 PM PDTPatient had numerous questions regarding Re-opening application. (20 minutes spent talking to patient) IW wanted to be placed on modifications or time off due to him having so many issues. IW wanted additional imaging testing done other that the X-ray IW wanted travel reimbusrement paid IW stated if goes back to work he may re-injured himself or make it worst. I did tell patient that unfortunatley since it's a Re-open process doctor cannot place him off work or give modification Until claim gets Re-open *and if he has any more concerns or questions IW should call his hospice community liaison or [facility] . documented in this encounter Plan of Treatment Not on filedocumented as of this encounter Visit Diagnoses Not on filedocumented in this encounter"
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
== END 2019-11-05 01:00 | disposition short-term general hospital (02) ==
LOC: ED 20:31
DX: S27.0XXA Traumatic pneumothorax, initial encounter (principal); S22.5XXA Flail chest, initial encounter for closed fracture; S14.3XXA Injury of brachial plexus, initial encounter; S42.92XA Fracture of left shoulder girdle, part unspecified, initial encounter for closed fracture; S45.002A Unspecified injury of axillary artery, left side, initial encounter; S01.01XA Laceration without foreign body of scalp, initial encounter; S01.411A Laceration without foreign body of right cheek and temporomandibular area, initial encounter; S01.111A Laceration without foreign body of right eyelid and periocular area, initial encounter; S31.119A Laceration without foreign body of abdominal wall, unspecified quadrant without penetration into peritoneal cavity, initial encounter; F17.210 Nicotine dependence, cigarettes, uncomplicated; Z23 Encounter for immunization; V58.5XXA Driver of pick-up truck or van injured in noncollision transport accident in traffic accident, initial encounter
CPT/HCPCS: 36430; 70450; 70486; 71045; 71260; 72125; 73030; 73060; 74177; 80053; 81001; 82150; 82550; 83605; 83690; 85025; 86850; 86900; 86901; 86920; 86927; 90471; 90715; 99291; 99292; G0390; G0480; J2405; J3010; P9016; Q9967